=== PATIENT | female | born 1995 | race Hispanic/Latino ===

== ENCOUNTER 2018-11-16 05:30 | Day surgery (SDC) | payer MEDICAID ==
[2018-11-15 16:20] VITALS: BP 113/67
[2018-11-15 16:34] LABS: BASOPHILS % (AUTO) 0.7 % (0.0-5.0); EOSINOPHILS % (AUTO) 0.9 % (0.0-8.0); HEMATOCRIT 34.7 % (36-48); LYMPHOCYTES % (AUTO) 20.5 % (21.0-51.0); MEAN CORPUSCULAR HEMOGLOBIN 22.9 pg (27.0-33.0); MEAN CORPUSCULAR HGB CONC 31.5 g/dL (32.0-36.0); MEAN CORPUSCULAR VOLUME 72.6 fL (79-99); MONOCYTES % (AUTO) 7.2 % (3.0-13.0); NEUTROPHILS % (AUTO) 70.7 % (40.0-77.0); PLATELET COUNT (AUTO) 355 K/uL (130-400); RED BLOOD CELL COUNT(AUTO) 4.78 MIL/uL (4.00-5.50); RED CELL DISTRIBUTION WIDTH 22.5 % (11.0-15.5); WHITE BLOOD COUNT (AUTO) 7.5 K/uL (4.8-10.8)
--- NOTE | 2018-11-15 17:37 | NUR ---
ABNORMAL LABS REPORTED ALL ABNORMAL LABS TO DR. MANZANO. NO NEW ORDERS
[2018-11-16] VITALS (14 sets, daily range): BP systolic 92–129; BP diastolic 47–87
[~2018-11-16] VITALS: Ht 160 cm; Wt 72.2 kg
[2018-11-16] MEDS: LACTATED RINGERS 1000ML 1,000 ML IV SCH ×2 (06:23→08:10)
[2018-11-16] MEDS ORDERED: PROPOFOL 10 MG/ML 20ML VIAL IV ONE (06:44)
[2018-11-16] MEDS ORDERED: ONDANSETRON HCL 4 MG/2 ML VIAL ONE (06:44)
[2018-11-16] MEDS ORDERED: DEXAMETHASONE SOD PHOSPHATE 10MG/ML 1ML VIAL ONE (06:44)
[2018-11-16] MEDS ORDERED: MIDAZOLAM HCL 1 MG/ML 2ML VIAL ONE (06:44)
[2018-11-16] MEDS ORDERED: LIDOCAINE PF 2% 5ML ABBOJECT ONE (06:44)
[2018-11-16] MEDS ORDERED: FENTANYL CITRATE PF 50 MCG/1 ML 2ML VIAL ONE ×2 (06:45→07:35)
[2018-11-16] MEDS ORDERED: ROCURONIUM 10MG/1ML SYR 10 MG/ML ML ONE (06:45)
[2018-11-16] MEDS ORDERED: GLYCOPYRROLATE 1 MG/5 ML SYRINGE ONE (07:48)
[2018-11-16] MEDS ORDERED: NEOSTIGMINE 5MG/5ML SYR IV ONE (07:49)
[2018-11-16] MEDS ORDERED: RACEPINEPHRINE HCL 2.25% 0.5 ML NEB SOLN ONE (08:06)
[2018-11-16] MEDS ORDERED: KETOROLAC TROMETHAMINE 30MG/ML ONE (08:52)
--- NOTE | 2018-11-16 09:12 | NUR ---
RECEIVED AWAKE ALERT ,SOME DISCOMFORT STATES ,WAS MEDICATED PER [employer] PRIOR TO COMING TO FLOOR ,WILL CONTINUE TO MONITOR, ENCOURAGED TO DEEP BREATH AND COUGH,,DOES WELL ,CALL MEHTA IN REACH Addendum: 11/16/18 at 1013 by URBNAO HOWELL LVN LVN STATES SHES ON HER MENSES ,,WITH SM AMT OF VAGINAL BLEEDING
--- NOTE | 2018-11-16 09:45 | NUR ---
ASSISTED TO [facility] [address],DOES WELL ,NO COMPLAINTS STATES FEELS FINE,,BACK TO ROOM AND GETS DRESSED WITH HELP,,INSTRUCTIONS GIVEN TO PT AND SPOUSE ,VERBALIZE UNDERSTANDING
--- NOTE | 2018-11-16 09:50 | NUR ---
PRESCRIPTION GIVEN TO SPOUSE
== END 2018-11-16 09:55 | disposition home or self-care (01) ==
LOC: DAH 05:30
PROVIDERS: ATTEND Obstetrics & Gynecology
DX: Z30.2 Encounter for sterilization (principal); D64.9 Anemia, unspecified; Z98.890 Other specified postprocedural states
CPT/HCPCS: 36415; 58670; 84702; 85025; 86850; 86900; 86901; 94640; A4215; A4351; A4452; A4606; C1769 ×2; J1100; J1885; J2001; J2250; J2405; J2704; J2710; J3010 ×2; J3490; J7120 ×2